=== PATIENT | female | born 1990 | race Caucasian/White ===

== ENCOUNTER 2021-09-27 16:44 | Emergency (ER) | payer MEDICAID, SELFPAY ==
[2021-09-27 17:27] VITALS: BP 122/83; PULSE 107; RESP 20; TEMP 36.4; O2SAT 100; BMI 34.7
--- NOTE | 2021-09-27 18:13 | ED.GENADULT ---
HPI - General Adult General Chief complaint: Sore Throat Stated complaint: Neck and Jaw Pain Time Seen by Provider: 09/27/21 17:57 History of Present Illness HPI narrative: This 31-year-old female comes in reporting some mild discomfort in her left neck and jaw. She states that this started yesterday. She does not report any particular sore throat and has no fever or sign of infection. She states that she wanted to come in to her primary physician but was redirected here as there was nothing available at the time. She does not report any difficulty with swallowing or shortness of breath. She does not feel any lumps or masses. Related Data Previous Rx's Medication Instructions Recorded ketorolac 10 mg tablet 10 mg PO TID 5 Days #15 tab 09/27/21 Allergies Allergy/AdvReac Type Severity Reaction Status Date / Time eggs Allergy Uncoded 09/27/21 17:35 Review of Systems Status of ROS: Reports: 10 or more systems reviewed and unremarkable except as noted in History and below Narrative: Constitutional: No fevers, no weight gain or loss. Eyes: No discharge. No vision changes. HENT: No congestion, no pain. Cardiovascular: No chest pain, no palpitations. Respiratory: No shortness of breath, no wheezes, no cough. Gastrointestinal: No abdominal pain, no vomiting, no diarrhea. Genitourinary: No dysuria, no hematuria. Musculoskeletal: Normal range of motion. Skin: No rashes, no pruritis. Neurological: No dizziness, weakness, sensory change, speech change. Endo/Heme/Allergies: No bruising or bleeding. No polydipsia. Pysch: no suicidality, no anxiety, no insomnia. All other systems reviewed and are negative. Exam Narrative: Exam Narrative: Constitutional: Well-developed, well-nourished, no acute distress. HEENT: Normocephalic, atraumatic. Oropharynx appears normal. There is no tonsillar hypertrophy or exudate. Neck: Normal range of motion. Nontender. Supple. No lymphadenopathy or palpable masses. Heart: Regular. No murmurs. Normal rate. Intact distal pulses. Lungs: Clear to auscultation. No chest discomfort. No wheezes, rhonchi, or rales. Abdomen: Normal bowel sounds. Nontender. No rebound tenderness. Genitalia: Deferred. Back: No midline tenderness. Normal range of motion. Extremities: Normal range of motion. No injury. Skin: Intact. No rash. Warm. No erythema or pallor. Neurologic: No altered sensation. No weakness. Alert and oriented. Psychiatric: No suicidality. No anxiety or depression. No insomnia. Nursing notes and vitals signs are reviewed. Const: Vital Signs, click to edit/add: Vital Signs - 24 hr 09/27/21 17:27 Temperature 97.6 F Pulse Rate [Pulse Oximeter] 107 H Respiratory Rate 20 Blood Pressure [Ri ght Upper Arm] 122/83 Pulse Oximetry 100 Course Vital Signs Vital signs: Initial Vital Signs Temperature 97.6 F 09/27/21 17:27 Temperature Source Temporal Artery Scan 09/27/21 17:27 Pulse Rate 107 H 09/27/21 17:27 Pulse Rhythm 09/27/21 17:27 Respiratory Rate 20 09/27/21 17:27 Blood Pressure 122/83 09/27/21 17:27 Blood Pressure Mean 96 09/27/21 17:27 Blood Pressure Position Supine 09/27/21 17:27 Pulse Oximetry 100 09/27/21 17:27 Oxygen Delivery Method 09/27/21 17:27 Vital Signs Temperature 97.6 F 09/27/21 17:27 Pulse Rate 107 H 09/27/21 17:27 Respiratory Rate 20 09/27/21 17:27 Blood Pressure 122/83 09/27/21 17:27 Pulse Oximetry 100 09/27/21 17:27 Temperature 97.6 F 09/27/21 17:27 Pulse Rate 107 H 09/27/21 17:27 Respiratory Rate 20 09/27/21 17:27 Blood Pressure 122/83 09/27/21 17:27 Pulse Oximetry 100 09/27/21 17:27 Medical Decision Making MDM Narrative Medical decision making narrative: This patient states that she essentially did not want a going to [employer] thinking that she might be spreading something. She appears to be focused on these matters and has some anxiety in this regard. I did offer strep and COVID testing which the patient declined as she is not showing any signs or symptoms of infection has normal exam. She did receive a prescription for Toradol. She is instructed to return if worsening symptoms happen. Discharge Plan Discharge Clinical Impression: Neck pain Patient Disposition: Home, Self-Care Condition: Stable Additional Instructions: Take medication as needed and indicated. Follow up with MD or return if worsening. Prescriptions: New ketorolac 10 mg tablet 10 mg PO TID 5 Days Qty: 15 0RF Stand Alone Forms: [employer] Info Instructions
[2021-09-27 18:40] VITALS: BP 136/93; PULSE 97; RESP 20; O2SAT 98
== END 2021-09-27 18:52 | disposition home or self-care (01) ==
LOC: ED 18:36
PROVIDERS: Emergency Provider Emergency Medicine Emergency Medical Services
DX: M54.2 Cervicalgia (principal)
CPT/HCPCS: 99282; 99283; 99284